=== PATIENT | female | born 1945 | race Caucasian/White ===

== ENCOUNTER 2017-04-20 21:43 | Emergency (ER) | payer OTHER ==
[~2017-04-20] VITALS: Ht 157.5 cm; Wt 110.0 kg
[~2017-04-20 21:43] MED LIST: ATOR80TA PO; FURO20TA3 PO; METF10002 PO; POTA20PA25 PO; TIOT18CA INH; VERA40TA PO
[2017-04-20 21:44] VITALS: BP 153/68
== END 2017-04-21 01:09 | disposition home or self-care (01) ==
LOC: ED 23:20
DX: S80.01XA Contusion of right knee, initial encounter (principal); S46.011A Strain of muscle(s) and tendon(s) of the rotator cuff of right shoulder, initial encounter; E11.9 Type 2 diabetes mellitus without complications; J44.9 Chronic obstructive pulmonary disease, unspecified; H91.91 Unspecified hearing loss, right ear; W01.0XXA Fall on same level from slipping, tripping and stumbling without subsequent striking against object, initial encounter; Y93.89 Activity, other specified; Y92.098 Other place in other non-institutional residence as the place of occurrence of the external cause; Y99.8 Other external cause status; Z79.82 Long term (current) use of aspirin; Z90.49 Acquired absence of other specified parts of digestive tract; Z88.1 Allergy status to other antibiotic agents; Z88.2 Allergy status to sulfonamides
CPT/HCPCS: 99284

== ENCOUNTER 2017-08-22 17:54 | Inpatient (IN) | payer OTHER ==
[~2017-08-22] VITALS: Ht 157.5 cm; Wt 107.5 kg
[2017-08-22] MEDS ORDERED: ALBUTEROL/IPRATROPIUM 2.5MG/0.5MG, 3 ML ONE (18:20)
[2017-08-22] MEDS ORDERED: PLEASE ENTER HEIGHT AND WEIGHT MC SCH (18:30)
[2017-08-22] MEDS ORDERED: SODIUM CHLORIDE FLUSH 10ML SYR IVF ONE (18:30)
[2017-08-22] MEDS ORDERED: SODIUM CHLORIDE 0.9% 1,000ML IVBOLUS ONE (18:30)
[2017-08-22] MEDS ORDERED: ALBUTEROL/IPRATROPIUM 2.5MG/0.5MG, 3 ML NPPB ONE (18:30)
[2017-08-22 18:34] LABS: BASOPHILS # (AUTO) 0.02 x10^3/uL (0-0.1); BASOPHILS % (AUTO) 0 % (0-1); EOSINOPHILS # (AUTO) 0.13 x10^3/uL (0-0.4); EOSINOPHILS % (AUTO) 2 % (1-7); LYMPHOCYTES % (AUTO) 17 % (22-44); MD NO; MEAN CORPUSCULAR HEMOGLOBIN 27.8 pg (27.0-34.8); MEAN CORPUSCULAR HGB CONC 33.4 g/dL (32.4-35.8); MEAN CORPUSCULAR VOLUME 83.3 fL (80-100); MEAN PLATELET VOLUME 8.8 fL (7.4-10.4); MONOCYTES # (AUTO) 0.61 x10^3/uL (0.2-0.8); MONOCYTES % (AUTO) 8 % (2-9); NEUTROPHILS # (AUTO) 5.54 x10^3/uL (1.8-6.8); NEUTROPHILS % (AUTO) 73 % (42-75); PLATELET COUNT 232 x10^3/uL (130-400); RED BLOOD COUNT 4.68 x10^6/uL (3.82-5.3); RED CELL DISTRIBUTION WIDTH 14.4 % (9.6-15.2)
[2017-08-22] MEDS ORDERED: POTA10TA31 PO (18:36)
[2017-08-22] MEDS ORDERED: PRAV10TA2 PO (18:36)
[2017-08-22] MEDS ORDERED: FURO-92 PO (18:36)
[2017-08-22] MEDS ORDERED: ESCI20TA PO (18:36)
[2017-08-22] MEDS ORDERED: LISI-170 PO (18:36)
[2017-08-22] MEDS ORDERED: VERA80TA2 PO (18:36)
[2017-08-22] MEDS ORDERED: METF500T4 PO (18:36)
[2017-08-22 18:39] LABS: INTERNATIONAL NORMALIZED RATIO 1.02 (0.93-1.1); PROTHROMBIN TIME 10.6 Seconds (9.6-11.5)
[2017-08-22 18:43] LABS: ALANINE AMINOTRANSFERASE 30 U/L (12-78); ALBUMIN 3.3 g/dL (3.4-5.0); ANION GAP 9 mmol/L (5-15); CALCIUM 8.5 mg/dL (8.5-10.1); CHLORIDE 99 mmol/L (98-107); CREATININE 0.65 mg/dL (0.55-1.02)
[2017-08-22 18:47] LABS: ALKALINE PHOSPHATASE 95 U/L (45-117); BILIRUBIN,TOTAL 0.4 mg/dL (0.2-1.0); TOTAL PROTEIN 8.1 g/dL (6.4-8.2); TROPONIN I < 0.015 ng/mL (0.000-0.045)
[2017-08-22] MEDS ORDERED: TIOT18CA INH (19:15)
[2017-08-22] MEDS ORDERED: FLUT1AER INH (19:15)
[2017-08-22] MEDS ORDERED: methylPREDNISolone SOD SUCC 125 MG/2 ML IVP ONE (19:30)
[2017-08-22] MEDS ORDERED: methylPREDNISolone SOD SUCC 125 MG/2 ML ONE (19:34)
[2017-08-22] MEDS ORDERED: SODIUM CHLORIDE FLUSH 10ML SYR IVF PRN (20:30)
[2017-08-22] MEDS ORDERED: GUAIFENESIN/DM 200-20MG, 10ML UDC PO PRN (21:00)
[2017-08-22] MEDS ORDERED: TEMAZEPAM 15 MG CAPSULE PO PRN (21:00)
[2017-08-22] MEDS ORDERED: CEFTRIAXONE PMX 1GM/50ML 50 ML IV SCH (21:00)
[2017-08-22] MEDS ORDERED: hydrALAzine 20 MG/ML, 1ML IVPush PRN (21:00)
[2017-08-22] MEDS ORDERED: ACETAMINOPHEN 325 MG TABLET PO PRN (21:00)
[2017-08-22] MEDS ORDERED: DOCUSATE 100 MG CAPSULE PO PRN (21:00)
[2017-08-22 22:00] VITALS: BP 117/68
[2017-08-22] MEDS ORDERED: IPRATROPIUM 0.5 MG/2.5 ML INHA NPPB SCH (22:00)
[2017-08-22] MEDS ORDERED: POTASSIUM CHLORIDE 20 MEQ TAB.ER.PRT PO ONE (22:30)
[2017-08-22] MEDS: CEFTRIAXONE 1,000 MG in DEXTROSE 5% 50 ML IV SCH (22:44)
[2017-08-22] MEDS: PRAVASTATIN 20 MG TABLET PO SCH (22:44)
[2017-08-22] MEDS: metFORMIN 500 MG TABLET PO SCH (22:45)
[2017-08-22] MEDS: ENOXAPARIN 40 MG/0.4 ML SQ SCH (22:45)
[2017-08-22] MEDS: BENZONATATE 100 MG CAPSULE PO SCH (22:45)
[2017-08-22] MEDS ORDERED: ASPI325T17 PO (23:19)
[2017-08-23] MEDS ORDERED: ALBUTEROL/IPRATROPIUM 2.5MG/0.5MG, 3 ML NPPB SCH (00:30)
[2017-08-23 03:02] VITALS: BP 127/75
[2017-08-23 05:01] LABS: BASOPHILS # (AUTO) 0.01 x10^3/uL (0-0.1); BASOPHILS % (AUTO) 0 % (0-1); EOSINOPHILS % (AUTO) 0 % (1-7); LYMPHOCYTES # (AUTO) 0.81 x10^3/uL (1-3.4); LYMPHOCYTES % (AUTO) 15 % (22-44); MD NO; MEAN CORPUSCULAR HGB CONC 33.6 g/dL (32.4-35.8); MEAN CORPUSCULAR VOLUME 83.3 fL (80-100); MEAN PLATELET VOLUME 8.9 fL (7.4-10.4); MONOCYTES # (AUTO) 0.18 x10^3/uL (0.2-0.8); MONOCYTES % (AUTO) 3 % (2-9); NEUTROPHILS # (AUTO) 4.39 x10^3/uL (1.8-6.8); NEUTROPHILS % (AUTO) 81 % (42-75); PLATELET COUNT 240 x10^3/uL (130-400); RED BLOOD COUNT 4.43 x10^6/uL (3.82-5.3); RED CELL DISTRIBUTION WIDTH 14.3 % (9.6-15.2)
[2017-08-23 05:10] LABS: ANION GAP 5 mmol/L (5-15); CHLORIDE 102 mmol/L (98-107)
[2017-08-23 05:11] LABS: CREATININE 0.61 mg/dL (0.55-1.02)
[2017-08-23 07:05] VITALS: BP 126/77
[2017-08-23] MEDS: ALBUTEROL/IPRATROPIUM 2.5MG/0.5MG, 3 ML NPPB SCH ×4 (08:05→19:40)
[2017-08-23] MEDS: BENZONATATE 100 MG CAPSULE PO SCH ×3 (09:19→20:15)
[2017-08-23] MEDS: INSULIN LISPRO 100 UNITS/ML, PEN SQ-INSULIN SCH ×4 (09:19→20:15)
[2017-08-23] MEDS: LISINOPRIL 20 MG TABLET PO SCH (09:20)
[2017-08-23] MEDS: POTASSIUM CHLORIDE 10 MEQ TABLET.ER PO SCH (09:20)
[2017-08-23] MEDS: metFORMIN 500 MG TABLET PO SCH ×2 (09:20→20:15)
[2017-08-23] MEDS: FUROSEMIDE 40 MG TABLET PO SCH (09:20)
[2017-08-23] MEDS: CITALOPRAM 20 MG TABLET PO SCH (09:20)
[2017-08-23] MEDS: FLUTICASONE/VILANTEROL 100-25MCG/INH INH SCH (10:10)
[2017-08-23 12:45] VITALS: BP 154/66
[2017-08-23 20:12] VITALS: BP 135/67
[2017-08-23] MEDS: PRAVASTATIN 20 MG TABLET PO SCH (20:15)
[2017-08-23] MEDS: ENOXAPARIN 40 MG/0.4 ML SQ SCH (20:15)
[2017-08-23] MEDS: CEFTRIAXONE 1,000 MG in DEXTROSE 5% 50 ML IV SCH (22:51)
[2017-08-24 00:16] VITALS: BP 143/66
[2017-08-24 05:23] LABS: BASOPHILS # (AUTO) 0.03 x10^3/uL (0-0.1); BASOPHILS % (AUTO) 0 % (0-1); EOSINOPHILS # (AUTO) 0.01 x10^3/uL (0-0.4); EOSINOPHILS % (AUTO) 0 % (1-7); LYMPHOCYTES # (AUTO) 2.01 x10^3/uL (1-3.4); LYMPHOCYTES % (AUTO) 21 % (22-44); MD NO; MEAN CORPUSCULAR HEMOGLOBIN 27.5 pg (27.0-34.8); MEAN CORPUSCULAR VOLUME 83.5 fL (80-100); MEAN PLATELET VOLUME 9.2 fL (7.4-10.4); MONOCYTES # (AUTO) 0.69 x10^3/uL (0.2-0.8); MONOCYTES % (AUTO) 7 % (2-9); NEUTROPHILS # (AUTO) 6.68 x10^3/uL (1.8-6.8); NEUTROPHILS % (AUTO) 71 % (42-75); PLATELET COUNT 272 x10^3/uL (130-400); RED BLOOD COUNT 4.03 x10^6/uL (3.82-5.3); RED CELL DISTRIBUTION WIDTH 14.4 % (9.6-15.2)
[2017-08-24 05:30] LABS: CHLORIDE 99 mmol/L (98-107)
[2017-08-24 05:36] LABS: ALANINE AMINOTRANSFERASE 21 U/L (12-78); ALKALINE PHOSPHATASE 76 U/L (45-117); ANION GAP 7 mmol/L (5-15); BILIRUBIN,TOTAL 0.3 mg/dL (0.2-1.0); CREATININE 0.58 mg/dL (0.55-1.02); TOTAL PROTEIN 7.6 g/dL (6.4-8.2)
[2017-08-24] MEDS: ALBUTEROL/IPRATROPIUM 2.5MG/0.5MG, 3 ML NPPB SCH ×4 (06:10→20:00)
[2017-08-24 06:35] VITALS: BP 125/65
[2017-08-24] MEDS: FLUTICASONE/VILANTEROL 100-25MCG/INH INH SCH (08:32)
[2017-08-24] MEDS: INSULIN LISPRO 100 UNITS/ML, PEN SQ-INSULIN SCH ×4 (08:32→20:20)
[2017-08-24] MEDS: metFORMIN 500 MG TABLET PO SCH ×2 (08:33→20:14)
[2017-08-24] MEDS: BENZONATATE 100 MG CAPSULE PO SCH ×3 (08:33→20:14)
[2017-08-24] MEDS: POTASSIUM CHLORIDE 10 MEQ TABLET.ER PO SCH (08:33)
[2017-08-24] MEDS: CITALOPRAM 20 MG TABLET PO SCH (08:33)
[2017-08-24] MEDS: FUROSEMIDE 40 MG TABLET PO SCH (08:33)
[2017-08-24] MEDS: LISINOPRIL 20 MG TABLET PO SCH (08:33)
[2017-08-24] MEDS: LEVOFLOXACIN/PMX 750MG/150ML 150 ML IV SCH (13:01)
[2017-08-24 14:20] VITALS: BP 145/61
[2017-08-24] MEDS ORDERED: PRAVASTATIN 40 MG TABLET ONE (20:05)
[2017-08-24 20:12] VITALS: BP 129/64
[2017-08-24] MEDS: PRAVASTATIN 20 MG TABLET PO SCH (20:14)
[2017-08-24] MEDS: ENOXAPARIN 40 MG/0.4 ML SQ SCH (20:14)
[2017-08-25 01:00] VITALS: BP 135/73
[2017-08-25 05:57] LABS: BASOPHILS # (AUTO) 0.05 x10^3/uL (0-0.1); BASOPHILS % (AUTO) 1 % (0-1); EOSINOPHILS # (AUTO) 0.04 x10^3/uL (0-0.4); EOSINOPHILS % (AUTO) 0 % (1-7); LYMPHOCYTES # (AUTO) 2.63 x10^3/uL (1-3.4); LYMPHOCYTES % (AUTO) 30 % (22-44); MD NO; MEAN CORPUSCULAR HGB CONC 33.5 g/dL (32.4-35.8); MEAN CORPUSCULAR VOLUME 83.4 fL (80-100); MONOCYTES # (AUTO) 0.63 x10^3/uL (0.2-0.8); MONOCYTES % (AUTO) 7 % (2-9); NEUTROPHILS % (AUTO) 62 % (42-75); PLATELET COUNT 306 x10^3/uL (130-400); RED BLOOD COUNT 4.22 x10^6/uL (3.82-5.3); RED CELL DISTRIBUTION WIDTH 14.6 % (9.6-15.2)
[2017-08-25 06:11] LABS: ALANINE AMINOTRANSFERASE 30 U/L (12-78); ALBUMIN 3.2 g/dL (3.4-5.0); ANION GAP 6 mmol/L (5-15); CALCIUM 9.2 mg/dL (8.5-10.1); CHLORIDE 99 mmol/L (98-107); CREATININE 0.65 mg/dL (0.55-1.02)
[2017-08-25 06:13] LABS: ALKALINE PHOSPHATASE 73 U/L (45-117); BILIRUBIN,TOTAL 0.4 mg/dL (0.2-1.0); TOTAL PROTEIN 7.6 g/dL (6.4-8.2)
[2017-08-25] MEDS: INSULIN LISPRO 100 UNITS/ML, PEN SQ-INSULIN SCH ×3 (07:00→16:00)
[2017-08-25 07:30] VITALS: BP 119/58
[2017-08-25] MEDS: ALBUTEROL/IPRATROPIUM 2.5MG/0.5MG, 3 ML NPPB SCH ×3 (08:40→14:30)
[2017-08-25] MEDS: CITALOPRAM 20 MG TABLET PO SCH (08:49)
[2017-08-25] MEDS: BENZONATATE 100 MG CAPSULE PO SCH ×2 (08:49→16:23)
[2017-08-25] MEDS: FLUTICASONE/VILANTEROL 100-25MCG/INH INH SCH (08:50)
[2017-08-25] MEDS: metFORMIN 500 MG TABLET PO SCH (08:50)
[2017-08-25] MEDS: LISINOPRIL 20 MG TABLET PO SCH (08:50)
[2017-08-25] MEDS: FUROSEMIDE 40 MG TABLET PO SCH (08:50)
[2017-08-25] MEDS: POTASSIUM CHLORIDE 10 MEQ TABLET.ER PO SCH (08:50)
[2017-08-25] MEDS ORDERED: LEVOFLOXACIN 750 MG TABLET PO SCH (09:00)
[2017-08-25] MEDS: LEVOFLOXACIN/PMX 750MG/150ML 150 ML IV SCH (12:12)
[2017-08-25] MEDS ORDERED: PRED20TA PO (12:58)
[2017-08-25] MEDS ORDERED: LEVO750T26 PO (12:58)
[2017-08-25 13:07] VITALS: BP 113/68
== END 2017-08-25 16:48 | disposition home health service (06) | DRG 189 ==
LOC: ED 19:19 → EDIP 20:16 → 5SO 21:18 → DCLOUNGE 08-25 16:35
PROVIDERS: ADMIT Hospitalist; ATTEND Hospitalist
DX: J96.01 Acute respiratory failure with hypoxia (principal); E11.65 Type 2 diabetes mellitus with hyperglycemia; I47.1 Supraventricular tachycardia; J44.1 Chronic obstructive pulmonary disease with (acute) exacerbation; E66.01 Morbid (severe) obesity due to excess calories; I11.9 Hypertensive heart disease without heart failure; N39.0 Urinary tract infection, site not specified; Z68.41 Body mass index [BMI] 40.0-44.9, adult; T38.0X5A Adverse effect of glucocorticoids and synthetic analogues, initial encounter; F41.9 Anxiety disorder, unspecified; E87.6 Hypokalemia; E78.5 Hyperlipidemia, unspecified; H91.90 Unspecified hearing loss, unspecified ear; J06.9 Acute upper respiratory infection, unspecified; Z85.828 Personal history of other malignant neoplasm of skin; Z87.891 Personal history of nicotine dependence; Z92.3 Personal history of irradiation; Y92.89 Other specified places as the place of occurrence of the external cause; Z79.899 Other long term (current) drug therapy
CPT/HCPCS: 36415; 71045; 80048; 80053; 82962; 83735; 84100; 84484; 85025; 85610; 85730; 93005; 94640; 96361; 96374; J1650; J1956; J7620; J1815; J2930; J7030; J7512

== ENCOUNTER 2021-02-01 22:44 | Emergency (ER) | payer OTHER ==
[~2021-02-01] VITALS: Ht 157.5 cm; Wt 95.3 kg
[~2021-02-01 22:44] MED LIST changes: +ASPI325T17 PO; +ESCI20TA8 PO; +FLUT1AER INH; +FURO-92 PO; +LEVO750T26 PO; +LISI-170 PO; +METF500T17 PO; +POTA10TA31 PO; +PRAV10TA2 PO; +PRED20TA PO; +VERA80TA25 PO
[2021-02-01 23:35] LABS: BASOPHILS % (AUTO) 1 % (0-1); EOSINOPHILS % (AUTO) 3 % (1-7); LYMPHOCYTES % (AUTO) 32 % (22-44); MEAN CORPUSCULAR HEMOGLOBIN 28.9 pg (27.0-34.8); MEAN CORPUSCULAR HGB CONC 34.2 g/dL (32.4-35.8); MEAN PLATELET VOLUME 9.5 fL (7.4-10.4); MONOCYTES % (AUTO) 7 % (2-9); NEUTROPHILS % (AUTO) 57 % (42-75); PLATELET COUNT 211 x10^3/uL (130-400); RED BLOOD COUNT 4.29 x10^6/uL (3.82-5.3); RED CELL DISTRIBUTION WIDTH 13.1 % (9.6-15.2)
[2021-02-01 23:38] LABS: ALANINE AMINOTRANSFERASE 24 U/L (12-78); ALBUMIN 3.4 g/dL (3.4-5.0); ANION GAP 7 mmol/L (5-15); CALCIUM 9.1 mg/dL (8.5-10.1); CHLORIDE 101 mmol/L (98-107); CREATININE 0.66 mg/dL (0.55-1.02)
[2021-02-01 23:49] LABS: ALKALINE PHOSPHATASE 115 U/L (45-117); BILIRUBIN,TOTAL 0.2 mg/dL (0.2-1.0); TOTAL PROTEIN 7.3 g/dL (6.4-8.2)
[2021-02-02 02:27] VITALS: BP 115/58
== END 2021-02-02 02:35 | disposition home or self-care (01) ==
LOC: ED 22:50
DX: R00.2 Palpitations (principal); J44.9 Chronic obstructive pulmonary disease, unspecified; E11.9 Type 2 diabetes mellitus without complications; Z90.49 Acquired absence of other specified parts of digestive tract; Z87.891 Personal history of nicotine dependence
CPT/HCPCS: 36415; 71045; 80053; 83735; 84443; 85025; 93005; 99283